=== PATIENT | male | born 1940 | race Caucasian/White ===

== ENCOUNTER 2019-04-29 10:40 | Outpatient (CLI) | payer MEDICARE ==
--- NOTE | 2019-04-29 11:04 | RAD ---
2 view chest: [04/29/2019] Comparison:01/01/2017 HISTORY: Shortness of breath FINDINGS: Coarse increased linear interstitial densities are noted within the perihilar regions and b oth lung bases, not significantly changed when compared to the 2017 examination. Stable pulmonary hyperinflation Stable midline sternotomy wires. Evidence of aortic valve replacement noted. Stable atherosclerotic u lceration the aortic arch. No pneumothorax or pleural fluid. No lobar consolidation or alveolar edema. IMPRESSION: Chronic findings as detailed above, unchanged. No radiographic evidence of acute cardiopu lmonary disease.
== END 2019-04-29 10:41 | disposition home or self-care (01) ==
LOC: RAD 10:40
PROVIDERS: ATTEND Internal Medicine Critical Care Medicine
DX: R06.00 Dyspnea, unspecified (principal); R91.8 Other nonspecific abnormal finding of lung field; Z95.2 Presence of prosthetic heart valve
CPT/HCPCS: 71046

== ENCOUNTER 2021-10-13 08:04 | Outpatient (CLI) | payer MEDICARE | END 2021-10-13 08:05 | disposition home or self-care (01) | LOC: TBSIIMAG 08:04 | PROVIDERS: ATTEND Nurse Practitioner Family | DX: S32.029A Unspecified fracture of second lumbar vertebra, initial encounter for closed fracture (principal); S32.039A Unspecified fracture of third lumbar vertebra, initial encounter for closed fracture; R60.0 Localized edema; M47.816 Spondylosis without myelopathy or radiculopathy, lumbar region; K80.20 Calculus of gallbladder without cholecystitis without obstruction; I71.4 Abdominal aortic aneurysm, without rupture | CPT/HCPCS: 72148 ==